=== PATIENT | female | born 1960 | race Caucasian/White ===

== ENCOUNTER → 2016-04-22 | Outpatient (CLI) | payer OTHER ==
[~2016-04-22] MED LIST: ASPI325T39 PO; FURO20TA PO; TRIATAB3 PO
--- NOTE | 2016-04-26 10:56 | MAMMOGRAPHY REPORT ---
THIS REPORT HAS BEEN AMENDED. BILATERAL DIGITAL SCREENING MAMMOGRAM TOMOSYNTHESIS WITH CAD: 04/22/2016 CLINICAL HISTORY: Routine screening. Patient has no complaints. TECHNIQUE: Breast tomosynthesis in addition to standard 2D mammography was performed. Current study was also evaluated with a Computer Aided Detection (CAD) system. COMPARISON: A left ML view and spot compression left CC and MLO views performed 11/10/2014 were avai lable for review. BREAST COMPOSITION: The tissue of both breasts is heterogeneously dense, which may obscure small ma sses. FINDINGS: Previously observed masses in the upper outer quadrant of the left breast have decreased c ompared to the 11/10/2014 mammogram. Grouped microcalcifications in the upper outer quadrant of the left breast are stable dating back to 2014. There are other scattered and grouped benign-appearing right breast microcalcifications. No suspicious mass, architectural distortion or cluster of suspi cious microcalcifications is seen. IMPRESSION: ACR BI-RADS CATEGORY 1: NEGATIVE There is no mammographic evidence of malignancy. However, prior outside mammograms are currently be ing requested and if obtained they will be reviewed, compared to the current exam to assess for any more subtle changes, and an addendum will be made to this report. Otherwise, a 1 year screening traci mogram is recommended. The patient will receive written notification of the results. Approximately 10% of breast cancers are not detected with mammography. A negative mammographic repor t should not delay biopsy if a clinically suggestive mass is present. Anna Ely M.D. ay/:04/25/2016 16:32:44 Cotton Puller: Nova Mcpherson, [facility] letter sent: Normal 1/2 BI-RADS Code: ACR BI-RADS Category 1: Negative AMENDMENT: 04/27/2016 Anna Ely M.D. [facility] 11[facility]2007, 11/07/2008, 04/15/2011 and 11/2014 became available for review. The previously observed circumscribed mass with layering calci fication in the upper outer posterior left breast has decreased compared to the 2015 mammogram. The re is a stable coarse calcification in the central right breast. However, there is a new cluster of microcalcifications lateral to the coarse calcification in the approximate 9:00 middle one third of the right breast, for which additional spot magnification views are recommended. No other new susp icious mass, focal area of architectural distortion or developing asymmetry is seen bilaterally. Th e patient will be called to schedule a follow-up diagnostic appointment. Amended BI-RADS: ACR BI-RADS Category 0: Incomplete Evaluation: Need Additional Imaging Evaluation letter sent: [facility] 0
== END | disposition home or self-care (01) ==
LOC: C.MAMM 14:21
PROVIDERS: ATTEND Family Medicine
DX: Z12.31 Encounter for screening mammogram for malignant neoplasm of breast (principal)

== ENCOUNTER → 2016-05-20 | Outpatient (CLI) | payer OTHER ==
--- NOTE | 2016-05-20 15:35 | MAMMOGRAPHY REPORT ---
UNILATERAL RIGHT DIGITAL DIAGNOSTIC MAMMOGRAM: 05/20/2016 CLINICAL HISTORY: Callback from screening mammogram for right breast calcifications. TECHNIQUE: Spot magnification right cc and ML views were obtained. COMPARISON: Comparison is made to exam dated: 04/22/2016 mammogram - [facility]. Outside prior mammograms dated 10/23/2014, 04/15/2011, 11/07/2008 BREAST COMPOSITION: The tissue of the right breast is heterogeneously dense, which may obscure smal l masses. FINDINGS: Spot magnification views of the right breast demonstrate grouped punctate calcifications in the right breast at 9:00, with total extent of the calcifications measuring approximately 5 mm. When compared to prior outside exams the calcifications do not appear significantly changed compared to the cc view from the 10/23/2014 exam, although were not clearly seen on exams prior to 2014. Giv en the punctate morphology and given the stability since 2014, the calcifications are probably benig n. The options of short interval follow-up versus stereotactic biopsy were discussed with the kevane nt. At this time we will opt for short interval follow-up. IMPRESSION: ACR-BI-RADS CATEGORY 3: PROBABLY BENIGN Grouped punctate calcifications in the right 9:00 breast are likely stable compared to the October 2014 exam, and are probably benign. Recommend follow-up diagnostic mammograms of the right breast in 6 months to confirm stability on spot magnification views. The patient has been verbally notified of the results. Approximately 10% of breast cancers are not detected with mammography. A negative mammographic repor t should not delay biopsy if a clinically suggestive mass is present. Jazlyn Simons M.D. ah/:05/20/2016 13:49:09 Batch Or Continuous Still Operator: Nova Mcpherson, [facility] letter sent: Follow Up Recommended 3 BI-RADS Code: ACR-BI-RADS Category 3: Probably Benign
== END | disposition home or self-care (01) ==
LOC: C.MAMM 13:14
PROVIDERS: ATTEND Family Medicine
DX: R92.0 Mammographic microcalcification found on diagnostic imaging of breast (principal)

== ENCOUNTER → 2016-10-13 | Outpatient (CLI) | payer OTHER | END | disposition home or self-care (01) | LOC: C.PAPS 14:27 | PROVIDERS: ATTEND Family Medicine | DX: Z12.72 Encounter for screening for malignant neoplasm of vagina (principal) ==

== ENCOUNTER → 2016-11-21 | Outpatient (CLI) | payer OTHER ==
--- NOTE | 2016-11-22 07:42 | MAMMOGRAPHY REPORT ---
UNILATERAL RIGHT DIGITAL DIAGNOSTIC MAMMOGRAM TOMOSYNTHESIS WITH CAD: 11/21/2016 CLINICAL HISTORY: Follow-up for a grouping of benign-appearing round and punctate microcalcifications in the lower outer right breast. TECHNIQUE: Right CC and MLO 2-D and tomosynthesis images, spot magnification right CC and ML views w ere obtained. Current study was also evaluated with a Computer Aided Detection (CAD) system. COMPARISON: Comparison is made to exams dated: 05/20/2016 mammogram, 04/22/2016 mammogram - [facility], 10/23/2014 mammogram, 11/10/2014 mammogram, 04/15/2011 mammogram, and 12/09/2008 mammo gram. BREAST COMPOSITION: The tissue of the right breast is heterogeneously dense, which may obscure small masses. FINDINGS: The parenchymal pattern of the right breast is similar to prior mammograms. There are grou ped coarse benign calcifications in the 9:00 middle to anterior right breast. There is a 6 mm groupi ng of round and punctate microcalcifications in the lower outer anterior right breast that is stablec omparing to the spot magnification views obtained 05/20/2016, and also likely stable comparing to the full-field 10/23/2014 mammograms. These macro calcifications most likely represent benign fibrocyst ic change, but another six-month follow-up right diagnostic mammogram including spot magnification vi ews is recommended to ensure longer stability. No new suspicious mass, asymmetry, distortion or new suspicious cluster of microcalcifications are id entified in the right breast. IMPRESSION: ACR-BI-RADS CATEGORY 3: PROBABLY BENIGN Stable mammographic appearance of the right breast including a 6 mm grouping of round and punctate mi crocalcifications in the lower outer anterior breast. These might or calcifications most likely repr esent benign fibrocystic change, as they have been present and do not appear significantly changed da ting back to 2015. However, another short interval follow-up right diagnostic mammogram including sp ot magnification views is needed to ensure longer stability. Annual left mammography will also be du e at that time. These results and recommendations were discussed with the patient at the time of the exam. Approximately 10% of breast cancers are not detected with mammography. A negative mammographic report should not delay biopsy if a clinically suggestive mass is present. Anna Ely M.D. ay/:11/21/2016 14:22:57 Rope Machine Setter: Houston Lala RT(Amparo)(M), [facility] letter sent: Follow Up Recommended 3 BI-RADS Code: ACR-BI-RADS Category 3: Probably Benign
== END | disposition home or self-care (01) ==
LOC: C.MAMM 13:48
PROVIDERS: ATTEND Family Medicine
DX: R92.0 Mammographic microcalcification found on diagnostic imaging of breast (principal)

== ENCOUNTER → 2017-05-22 | Outpatient (CLI) | payer OTHER ==
--- NOTE | 2017-05-23 07:42 | MAMMOGRAPHY REPORT ---
BILATERAL DIGITAL DIAGNOSTIC MAMMOGRAM TOMOSYNTHESIS WITH CAD: 05/22/2017 CLINICAL HISTORY: Close follow-up of probably benign microcalcifications in the 9:00 right breast. A lso time of annual bilateral screening exam. TECHNIQUE: Breast tomosynthesis in addition to standard 2D mammography was performed. Spot magnific ation right CC and ML views were also obtained. Current study was also evaluated with a Computer Aid ed Detection (CAD) system. COMPARISON: Comparison is made to exams dated: 11/21/2016 mammogram, 05/20/2016 mammogram, 04/22/2016 ma mmogram - [facility], 11/10/2014 mammogram, 10/23/2014 mammogram, and 04/15/2011 mammog sara. BREAST COMPOSITION: There are scattered areas of fibroglandular density in both breasts. FINDINGS: There are mild involutional changes comparing to more remote prior mammograms. There is st able focal asymmetry in the 12:00 far posterior right breast. There are scattered benign-appearing r ound and rim calcifications bilaterally. There is a grouping of punctate microcalcifications in the 9:00 middle one third of the right breast measuring 5 mm that appears similar on prior full-field vie ws dating back to 2014. Based on spot magnification views, this grouping of calcifications is stable dating back to at least 05/20/2016. With one-year stability these calcifications are most likely kyaw gn but another 12 month follow-up diagnostic mammogram including spot magnification views is recommen ded to ensure at least 2 years of stability. No other new suspicious mass, asymmetry, architectural distortion or suspicious microcalcifications are identified bilaterally. IMPRESSION: ACR-BI-RADS CATEGORY 3: PROBABLY BENIGN Stable 5 mm grouping of punctate microcalcifications in the 9:00 right breast and a few other scatter ed and loosely grouped benign-appearing calcifications bilaterally. There is no definite mammographi c evidence of malignancy bilaterally. Another 12 month follow-up diagnostic mammogram including spot magnification views is recommended to ensure longer stability. These results and recommendations were discussed with the patient at the time of the exam. Approximately 10% of breast cancers are not detected with mammography. A negative mammographic report should not delay biopsy if a clinically suggestive mass is present. Anna Ely M.D. ay/:05/22/2017 09:20:55 Terminal Press Operator: Janet DELUCA(R)(M), [facility] letter sent: Follow Up Recommended 3 BI-RADS Code: ACR-BI-RADS Category 3: Probably Benign
== END | disposition home or self-care (01) ==
LOC: C.MAMM 08:48
PROVIDERS: ATTEND Family Medicine
DX: R92.0 Mammographic microcalcification found on diagnostic imaging of breast (principal)